=== PATIENT | male | born 2000 | race Caucasian/White ===

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

== ENCOUNTER 2023-04-20 15:24 | Outpatient (REF) | payer OTHER, SELFPAY ==
[2023-04-20 16:07] LABS: MANUAL DIFF FLAG NO
[2023-04-20 16:20] LABS: Basophils Absolute Auto 0.1 X10*3/uL (0.0-0.2); Basophils Percent Auto 0.8 % (0-2); Eosinophils Absolute Auto 0.3 X10*3/uL (0.0-0.4); Eosinophils Percent Auto 4.1 % (0-4); Hematocrit 44.2 % (42.0-52.0); Hemoglobin 14.6 g/dl (14.0-18.0); Imm Gran Abs Auto 0.03 X10*3/uL (0.00-0.03); Imm Gran Pct Auto 0.4 % (0.0-0.4); Lymphocytes Absolute Auto 2.1 X10*3/uL (1.2-4.9); Lymphocytes Percent Auto 29.3 % (20-40); Mean Corpuscular Hemoglobin 28.6 pg (27.0-33.0); Mean Corpuscular Volume 86.7 fL (80.0-98.0); Mean Platelet Volume 11.1 fL (9.4-12.4); Monocytes Absolute Auto 0.6 X10*3/uL (0.1-1.2); Monocytes Percent Auto 8.5 % (2-11); Neutrophils Absolute Auto 4.2 x10*3/uL (2.0-8.3); Neutrophils Percent Auto 56.9 % (45-73); Platelet Count 248 X10*3/uL (160-400); White Blood Count 7.3 X10*3/uL (4.8-10.8)
[2023-04-20 17:42] LABS: Alanine Aminotransferase 19 U/L (0-40); Albumin Level 4.6 g/dL (3.5-5.0); Alkaline Phosphatase 82 U/L (39-117); Anion Gap 14 (12-20); Aspartate Amino Transferase 19 U/L (5-37); Bilirubin Direct 0.2 mg/dL (0.0-0.5); Bilirubin Total 0.6 mg/dL (0.0-1.0); Blood Urea Nitrogen 11 mg/dL (9-16); Carbon Dioxide 27 mmol/L (22-29); Chloride 105 mmol/L (96-108); Cholesterol 142 mg/dL; Estimated Glomerular Filt Rate > 60; Glucose Random 88 mg/dL (60-115); HDL Cholesterol 50 mg/dL; LDL Cholesterol Calculated 82 mg/dl; Potassium 3.8 mmol/L (3.3-5.1); Sodium 142 mmol/L (135-145); Total Protein 7.6 g/dL (6.5-8.0); Triglycerides 54 mg/dL
[2023-04-21 08:29] LABS: ~HepC Num1 0.16 S/CO (0.00-0.79); ~Hepatitis C Antibody Nonreactive (Nonreactive)
[2023-04-21 08:31] LABS: HIV AB/AG Nonreactive (Nonreactive); HIV Num 1 0.06 S/CO (0.00-0.99)
[2023-04-21 11:38] LABS: CT PCR NOT DETECTED (Not Detect.); NG PCR NOT DETECTED (Not Detect.)
== END 2023-04-20 15:25 | disposition home or self-care (01) ==
LOC: HO.HHCL 15:24
PROVIDERS: Visit Provider Internal Medicine
DX: Z00.00 Encounter for general adult medical examination without abnormal findings (principal); Z20.2 Contact with and (suspected) exposure to infections with a predominantly sexual mode of transmission
CPT/HCPCS: 0353U; 80048; 80061; 80076; 85025; 86803; 87389

== ENCOUNTER 2024-09-18 09:26 | Outpatient (REF) | payer SELFPAY ==
[2024-09-18 11:41] LABS: MANUAL DIFF FLAG NO
[2024-09-18 11:42] LABS: Basophils Absolute Auto 0.1 X10*3/uL (0.0-0.2); Eosinophils Absolute Auto 0.2 X10*3/uL (0.0-0.4); Eosinophils Percent Auto 3.9 % (0-4); Hematocrit 44.9 % (42.0-52.0); Hemoglobin 15.3 g/dl (14.0-18.0); Imm Gran Abs Auto 0.02 X10*3/uL (0.00-0.03); Imm Gran Pct Auto 0.3 % (0.0-0.4); Lymphocytes Absolute Auto 2.1 X10*3/uL (1.2-4.9); Lymphocytes Percent Auto 33.8 % (20-40); Mean Corpuscular HGB Conc 34.1 g/dl (31.0-36.0); Mean Corpuscular Hemoglobin 29.3 pg (27.0-33.0); Mean Corpuscular Volume 85.9 fL (80.0-98.0); Mean Platelet Volume 11.3 fL (9.4-12.4); Monocytes Absolute Auto 0.8 X10*3/uL (0.1-1.2); Monocytes Percent Auto 12.4 % (2-11); NRBC Pct Auto 0.5 /100WBC (0.0-0.2); Neutrophils Percent Auto 48.6 % (45-73); Platelet Count 290 X10*3/uL (160-400); Red Blood Count 5.23 X10*6/uL (4.60-5.80); Red Cell Distribution Width 12.8 % (11.0-16.0); White Blood Count 6.1 X10*3/uL (4.8-10.8)
[2024-09-18 12:33] LABS: Alanine Aminotransferase 45 U/L (0-40); Albumin Level 4.5 g/dL (3.5-5.0); Alkaline Phosphatase 66 U/L (39-117); Anion Gap 8 (12-20); Aspartate Amino Transferase 54 U/L (5-37); Bilirubin Total 0.8 mg/dL (0.0-1.0); Blood Urea Nitrogen 11 mg/dL (9-16); Calcium 8.7 mg/dL (8.4-10.2); Carbon Dioxide 30 mmol/L (22-29); Chloride 105 mmol/L (96-108); Cholesterol 143 mg/dL (<200); Estimated Glomerular Filt Rate > 60; Glucose Random 107 mg/dL (60-115); HDL Cholesterol 49 mg/dL (>40); LDL Cholesterol Calculated 81 mg/dL (<100); Potassium 3.4 mmol/L (3.3-5.1); Sodium 140 mmol/L (135-145); Total Protein 7.7 g/dL (6.5-8.0); Triglycerides 65 mg/dL (<150)
[2024-09-18 12:35] LABS: Estimated Average Glucose 103 mg/dL; Hemoglobin A1C 130.7069 umol/L; Hemoglobin A1c % 5.2 % (<6.0); Total Hemoglobin (HGBA1C) 3915.6545 umol/L
[2024-09-18 13:28] LABS: Reflex LDLD? No
[2024-09-21 14:27] LABS: HBS Num1 2.53 mIU/mL (0-7.99); HBc Num1 0.11 S/CO (0.00-0.79); HBsAGNum1 0.41 S/CO (0.00-0.99); HIV AB/AG Nonreactive (Nonreactive); HIV Num 1 0.06 S/CO (0.00-0.99); Hepatitis B Core Antibody Nonreactive (Nonreactive); Hepatitis B Surface Antigen Negative (Negative); ~HepC Num1 0.19 S/CO (0.00-0.79); ~Hepatitis A Antibody IgM Nonreactive (Nonreactive); ~Hepatitis B Surface Antibody NONREACTIVE (Nonreactive); ~Hepatitis C Antibody Nonreactive (Nonreactive)
== END 2024-09-18 09:27 | disposition home or self-care (01) ==
LOC: HO.HHCL 09:26
PROVIDERS: Visit Provider Internal Medicine
DX: Z00.00 Encounter for general adult medical examination without abnormal findings (principal); Z13.1 Encounter for screening for diabetes mellitus
CPT/HCPCS: 36415; 80053; 80061; 82306; 83036; 85025; 86704; 86706; 86709; 86803; 87340; 87389

== ENCOUNTER 2024-09-19 11:14 | Outpatient (REF) | payer SELFPAY ==
[2024-09-19 13:13] LABS: CT PCR NOT DETECTED (Not Detect.); NG PCR NOT DETECTED (Not Detect.)
[2024-09-22 15:38] LABS: C. Trachomatis RNA TMA, Throat NOT DETECTED; N. gonorrhoeae RNA TMA, Throat NOT DETECTED
== END 2024-09-19 11:15 | disposition home or self-care (01) ==
LOC: HO.HHCLNP 11:14
PROVIDERS: Visit Provider Internal Medicine
DX: Z20.2 Contact with and (suspected) exposure to infections with a predominantly sexual mode of transmission (principal)
CPT/HCPCS: 87491; 87591

== ENCOUNTER 2024-09-22 11:22 | Outpatient (REF) | payer OTHER, SELFPAY | END 2024-09-22 11:23 | disposition home or self-care (01) | LOC: HO.HHCL 11:22 | PROVIDERS: Visit Provider Internal Medicine | DX: R79.89 Other specified abnormal findings of blood chemistry (principal); Z53.8 Procedure and treatment not carried out for other reasons | CPT/HCPCS: 36415 ==

== ENCOUNTER 2024-09-26 08:05 | Outpatient (REF) | payer OTHER, SELFPAY ==
--- NOTE | ~2024-09-26 | US_ITS ---
CLINICAL HISTORY: elevated LFTs US abdomen complete with color Doppler Comparison: None Findings: The visualized pancreas, aorta, and inferior vena cava are unremarkable. Liver normal size and echotexture. Right lobe 16.7 cm length. No focal hepatic masses. Common duct 5.0 mm diameter. Physiologic distention of the gallbladder. No gallstones or sludge. No gallbladder wall thickening. No pericholecystic fluid. No sonographic Nichole sign. Main portal vein antegrade. Right kidney normal size, 12.5 cm in length. Normal cortical width and echotexture. No solid or cystic renal masses. No nephrolithiasis or hydronephrosis. Left kidney normal, 12.4 cm in length. Normal cortical width and echotexture. No solid or cystic renal masses. No nephrolithiasis or hydronephrosis. Spleen measures 12.4 cm. No splenic masses. No ascites. No lymphadenopathy. Impression: 1. Normal abdominal ultrasound. This document has been electronically signed by: Gilmar Luna MD on 09/28/2024 09:14:30
== END 2024-09-26 08:06 | disposition home or self-care (01) ==
LOC: HO.US 08:05
PROVIDERS: PCP Internal Medicine; Visit Provider Internal Medicine
DX: R79.89 Other specified abnormal findings of blood chemistry (principal)
CPT/HCPCS: 76700

== ENCOUNTER 2024-09-26 08:49 | Outpatient (REF) | payer OTHER, SELFPAY ==
[2024-09-26 12:04] LABS: HBS Num1 2.51 mIU/mL (0-7.99); HBc Num1 0.15 S/CO (0.00-0.79); Hepatitis A Antibody IgM 0.21 Index (0-0.79); Hepatitis B Core Antibody Nonreactive (Nonreactive); Hepatitis B Surface Antigen Negative (Negative); ~HepC Num1 0.18 S/CO (0.00-0.79); ~Hepatitis A Antibody IgM Nonreactive (Nonreactive); ~Hepatitis B Surface Antibody NONREACTIVE (Nonreactive); ~Hepatitis C Antibody Nonreactive (Nonreactive)
== END 2024-09-26 08:50 | disposition home or self-care (01) ==
LOC: HO.HHCL 08:49
PROVIDERS: Visit Provider Internal Medicine
DX: R79.89 Other specified abnormal findings of blood chemistry (principal)
CPT/HCPCS: 36415; 86704; 86706; 86709; 86803; 87340